=== PATIENT | female | born 1955 | race Caucasian/White ===

== ENCOUNTER → 2017-05-17 | Day surgery (SDC) | payer OTHER ==
[~2017-05-17] MED LIST: ASPIRIN81 M2 PO; CALCIUM 500 +1 EAC2 PO; CELECOXIB200 MG PO; CERTAGEN PO; COLACE PO; FLONASE ALLERG9.9 ML; IBUPROFEN PO; LIPITOR40 MG PO; LISINOPRIL10 MG; NASONEX17 GM; NEURONTIN600 MG PO; PRILOSEC PO; REQUIP0.25 MG PO; ZYRTEC10 M1 PO
--- NOTE | ~2017-05-17 | OR ---
Unit #: [id number] #: [id number] Patient: APOLINAR VAZQUEZ [id number] [address] [place], [place] [address] [id number] MR#: [id number] NAME: APOLINAR VAZQUEZ. ROOM: Date of Procedure: 05/17/2017 Admission Date: 05/17/2017 Surgeon: Trent Hernandez M.D. : 1955 Attending Physician: Ambrosio Hernandez Primary Care Physician: John Duarte M.D. [facility] OPERATIVE NOTE PROCEDURE PERFORMED Lumbar epidural steroid injection under x-ray guided needle placement with provider administered conscious sedation. PREOPERATIVE DIAGNOSES 1. Acute lumbar radiculitis. 2. Spinal stenosis, lumbosacral spine. 3. Herniated disk, L4-L5. 4. Degenerative joint disease, lumbosacral spine. 5. Degenerative disk disease, lumbosacral spine. 6. Facet arthropathy, lumbosacral spine. INDICATIONS FOR PROCEDURE The patient presents today with a 4 to 6 month history of crescendo pattern lumbar radicular pain bilateral, which has failed to respond to conservative measures which include medical management and self-directed physical activity. After discussing risks and benefits of proceeding today with a lumbar approach epidural steroid injection and return on 05/31/2017, at which point will be evaluated for a potential [facility] referral, the patient agreed this would be the appropriate course of action. DESCRIPTION OF PROCEDURE She was then taken to the operating room, where she was prepped and draped in sterile manner. Standard monitors were applied. She was sedated with 2 mg of IV Versed and lumbar epidural space accessed at the L4-L5 level using loss of resistance technique and x-ray guidance. Needle placement was confirmed with injection of 2 mL of Omnipaque. Total x-ray time for this needle placement was 8 seconds. There was good superior and inferior flow at this L4-L5 level placement. Following successful needle placement confirmation, the patient received an injectate containing 2 mL normal saline, 2 mL of 0.25% bupivacaine, and 80 mg of methylprednisolone. She tolerated this procedure well. She was discharged home with followup instructions, which include return dates as described above. Dictated by... Trent Hernandez M.D. KALIN/leonel TD: 05/17/2017 11:57 JOB #: [id number] Unit #: [id number] #: [id number] Patient: [facility]IN[facility] OPER[facility]IVE NOTE Page 1 of 1 X Ambrosio Hernandez MD PROCEDURE OPERATIVE NOTE
== END | disposition home or self-care (01) ==
LOC: CCSC 07:40
DX: M51.17 Intervertebral disc disorders with radiculopathy, lumbosacral region (principal); M51.16 Intervertebral disc disorders with radiculopathy, lumbar region; M47.27 Other spondylosis with radiculopathy, lumbosacral region; M48.07 Spinal stenosis, lumbosacral region; M46.97 Unspecified inflammatory spondylopathy, lumbosacral region; K21.9 Gastro-esophageal reflux disease without esophagitis; Z86.73 Personal history of transient ischemic attack (TIA), and cerebral infarction without residual deficits; Z79.82 Long term (current) use of aspirin; Z79.899 Other long term (current) drug therapy; Z90.710 Acquired absence of both cervix and uterus; Z90.49 Acquired absence of other specified parts of digestive tract; Z96.651 Presence of right artificial knee joint; Z98.890 Other specified postprocedural states
CPT/HCPCS: J1040; J2250